=== PATIENT | male | born 1995 | race Asian ===

== ENCOUNTER 2019-12-18 15:25 | Emergency (ER) | payer OTHER ==
[~2019-12-18] VITALS: Ht 180.3 cm; Wt 70.8 kg
[2019-12-18 15:31] VITALS: BP 172/103
[2019-12-18] MEDS ORDERED: LIDOCAINE-MPF 1%, 5ML INFIL ONE (16:00)
[2019-12-18] MEDS ORDERED: LIDOCAINE-MPF 1%, 5ML ONE (16:24)
[2019-12-18] MEDS ORDERED: NEOSPORIN OINT. PKT 1 PACKET ONE (17:17)
== END 2019-12-18 18:03 | disposition home or self-care (01) ==
LOC: ED 16:14
DX: S01.312A Laceration without foreign body of left ear, initial encounter (principal); S01.01XA Laceration without foreign body of scalp, initial encounter; W18.00XA Striking against unspecified object with subsequent fall, initial encounter; Y93.31 Activity, mountain climbing, rock climbing and wall climbing; Y92.828 Other wilderness area as the place of occurrence of the external cause; Y99.8 Other external cause status
CPT/HCPCS: 12001; 12011; 12052; 99285